=== PATIENT | female | born 2005 | race Hispanic/Latino ===

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

== ENCOUNTER 2025-04-02 15:28 | Emergency (ER) | payer SELFPAY ==
[~2025-04-02] VITALS: Ht 139.7 cm; Wt 87.1 kg
[~2025-04-02 15:28] MED LIST: NAPR-1179 PO
[2025-04-02] MEDS ORDERED: CLIN-141 PO (16:21)
--- NOTE | 2025-04-02 16:22 | ERN ---
ED Note History of Present Illness Stated Complaint: RT BREAST MASS Chief Complaint: Breast Problem Time Seen by MD: 15:33 Time Seen by Midlevel: 15:38 Dictation: 18-year-old female coming in with complaints of a right breast pain with a possible abscess onset four days ago. Patient states she is still having nipple piercing in that area however two years ago she removed it. Patient states three days ago patient noticed something white, she squeezed it and states from then on it became larger. Denies any fever, nausea or vomiting or diarrhea. Allergies: Coded Allergies: No Known Allergies (Unverified Allergy, Unknown, 01/26/21) Home Meds Active Scripts Naproxen Sodium (Anaprox Ds) 550 Mg Tablet, 550 MG PO BID for pain, #7 TAB Prov:VICTORINO MORENO MD 01/26/21 Past Medical History Past Medical History: No Pertinent History Additional Past Medical Hx: LOCK JAW Surgical History: None Social History: Negative LMP: Mar 01, 2025 : 1 Para: 1 Aborts: 0 Review of System Dictation Constitutional: Negative for fever,chills, and weight loss Eyes: Negative for injury, pain,redness, and discharge ENT: Negative for injury,pain or swelling Cardiovascular: Negative for chest pain, palpitations, and edema Respiratory: Negative for shortness of breath, cough, and wheezing, Abdomen/GI: Negative for abdominal pain, nausea, vomiting, diarrhea, and constipation Back: Negative for injury and pain : Negative for injury, bleeding and discharge MS/Extremity: Negative for injury and deformity, right breast pain Skin: Negative for rash, and discoloration Neuro: Negative for headache, weakness, numbness, tingling, and seizure Psych: Negative for suicide ideation, homicidal ideation, and hallucinations Review of Systems: was completed Initial Vital Sign VS Vital Signs Date Time Temp Pulse Resp B/P (MAP) Pulse Ox O2 Delivery O2 Flow Rate FiO2 04/02/25 15:33 97.5 86 16 129/68 98 Room Air 0 Physical Exam Dictation General: awake, alert, NAD Head/Face: Normocephalic, atraumatic Eyes: PERRL, EOMI, vision at baseline ENT: oral cavity clear, TMs clear, no signs of infection Neck: Trachea midline, supple, no nuchal rigidity Cardiovascular: RRR, normal S1/S2, No MRGs, no JVD Respiratory: CTAB, no respiratory distress, No rales or wheezes Abdomen: Soft, non-tender, non-distended, normal bowel sounds, no guarding or rebound. Skin: Warm, dry, normal turgor, no rash MS/Extremity: Pulses equal, no cyanosis, neurovascular intact, FROM, raise erythemic noted to the subareolar area, no active drainage, white center, consistent with abscess Neuro: COAx4, GCS 15, strength 5/5, CN 2-12 intact, normal cerebellar exam, normal gait, Psych: Normal behavior, mood, and affect normal Results (Laboratory/Radiology) Labs Reviewed?: Yes ED Course ED Course Orders Procedure Category Date Status Time Us Breast Limited US 04/02/25 Taken Unilateral 15:36 Ketorolac PHA 04/02/25 Complete Tromethamine 15mg/Ml 16:00 Current Medications Medications (Trade) Dose Ordered Sig/Edgar Route PRN Reason Start Time Stop Time Status Last Admin Dose Admin Ketorolac Tromethamine (toRADol) 15 mg ONCE ONCE IM 04/02/25 16:00 04/02/25 16:01 DC 04/02/25 16:13 Vital Signs Date Time Temp Pulse Resp B/P (MAP) Pulse Ox O2 Delivery O2 Flow Rate FiO2 04/02/25 15:33 97.5 86 16 129/68 98 Room Air 0 Medical Decision Making MDM MDM: 18-year-old female coming in with complaints of a right breast pain with a possible abscess onset four days ago. Patient states she is still having nipple piercing in that area however two years ago she removed it. Patient states three days ago patient noticed something white, she squeezed it and states from then on it became larger. Denies any fever, nausea or vomiting or diarrhea. Ultrasound preliminary shows a right subareolar abscess measuring 3 x 1 x 3 cm with vascularity. These findings are consistent with the abscess. Patient will be discharged on antibiotics and follow up in the next couple of days with the PCP. Discussed with the patient on when to return back to the ER and to follow up. Patient verbalized understanding, answered all questions. Differential diagnosis: cellulitis, abscess, Rationale: Tests considered and ordered secondary to shared decision making include: Previous outside records reviewed: Old ER visits. Risk of complication and/or morbidity or mortality of patient management: None Medications-Per medication reconciliation Need for hospitalization: Patient does not meet criteria for hospitalization. Need for emergency major/minor surgery: No There are no social concerns with this patient. Prescription drug management Prescriptions will include symptomatic care Patient's prior external medical records from other ER visits were reviewed by me as indicated. Prior testing and results from previous visits were reviewed. Prior tests were taken into account with medical decision making and resource utilization, independent historian/historians were used to obtain complete medical history. I independently interpreted the test that were performed, results were reviewed by me and considered findings on radiology if ordered. Medical management and examination interpretation discussions were had by me with other qualified healthcare professionals as indicated for the patient's care. DX & DISP Disposition: Discharge Departure Impression: Primary Impression: Subareolar breast abscess Condition: Stable Scripts Clindamycin HCl (Clindamycin HCl) 300 Mg Capsule 1 CAP PO BID for 7 Days, #14 CAP 0 Refills Prov: ALEYDA CARDENAS CNP 04/02/25 Additional Instructions: use warm compresses to help with drainage of the abscess. Please follow up during the week with the your PCP. Return to the hospital if you notice any st reaking, worsening infection, fever nausea or vomiting. Referrals: SELF,REFERRAL (PCP) Time of Disposition: 16:20 I have reviewed the case, and I agree with, Diagnosis and Plan ALEYDA CARDENAS CNP Apr 02, 2025 16:22
[2025-04-02 17:01] VITALS: BP 125/79; PULSE 105; RESP 17; TEMP 97.5; O2SAT 98
--- NOTE | 2025-04-02 18:11 | HMCIMG ---
EXAM Ultrasound right breast limited CLINICAL HISTORY Rule out abscess. TECHNIQUE Limited ultrasound of the right breast was performed using a high-frequency linear transducer. Grayscale and color Doppler imaging were obtained. COMPARISON No prior studies available for comparison. FINDINGS Limited ultrasound of the right breast. Right Breast: Skin and Subcutaneous Tissues: Unremarkable. Nipple-Areola Complex: The subareolar region demonstrates a well-defined hypoechoic fluid collection measuring 3.5 x 1.2 x 3.3 cm with internal hypervascularity on color Doppler imaging, consistent with an abscess. Fibroglandular Parenchyma: The remainder of the visualized fibroglandular tissue is homogeneous and unremarkable, without evidence of additional masses, cysts, or architectural distortion. Ducts: No ductal ectasia or intraductal abnormalities identified. IMPRESSION Well-circumscribed subareolar hypoechoic collection with internal vascularity on Doppler, measuring 3.5 x 1.2 x 3.3 cm, highly suggestive of abscess formation. Recommend clinical correlation with consideration for image-guided aspiration or drainage. Posttreatment diagnostic mammography should also be considered. /[place]
== END 2025-04-02 17:05 | disposition home or self-care (01) ==
LOC: EDH 15:28
DX: N61.1 Abscess of the breast and nipple (principal)
CPT/HCPCS: 99285; 76642; 96372; J1885